=== PATIENT | female | born 1965 | race American Indian/Alaskan Native ===

== ENCOUNTER 2016-11-27 19:13 | Emergency (ER) | payer OTHER ==
[2016-11-27] MEDS ORDERED: MOTRIN PO ONE (22:37)
[2016-11-27] MEDS ORDERED: NORCO 5/325 PO ONE (22:37)
[2016-11-27] MEDS ORDERED: FLEXERIL PO ONE (22:37)
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
[2016-11-28] VITALS: BP 164/110
== END 2016-11-28 00:25 | disposition home or self-care (01) ==
LOC: ED 19:13
DX: M54.2 Cervicalgia (principal); M54.5 Low back pain; R51 Headache; V89.2XXA Person injured in unspecified motor-vehicle accident, traffic, initial encounter; Y93.89 Activity, other specified; Y92.89 Other specified places as the place of occurrence of the external cause; Y99.8 Other external cause status
CPT/HCPCS: 72040; 72100; 99283

== ENCOUNTER 2017-06-04 23:34 | Emergency (ER) | payer OTHER ==
[2017-06-05 00:56] VITALS: BP 157/76
[2017-06-05] MEDS ORDERED: NORCO 5/325 PO ONE (04:08)
[2017-06-05] MEDS ORDERED: ZOFRAN ODT PO ONE (04:08)
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
== END 2017-06-05 05:15 | disposition home or self-care (01) ==
LOC: ED 23:34
DX: M54.5 Low back pain (principal); M54.2 Cervicalgia; M25.512 Pain in left shoulder; V49.49XA Driver injured in collision with other motor vehicles in traffic accident, initial encounter; Y93.89 Activity, other specified; Y92.89 Other specified places as the place of occurrence of the external cause; Y99.8 Other external cause status
CPT/HCPCS: 72040; 72100; Q0162